=== PATIENT | male | born 1940 | race Caucasian/White ===

== ENCOUNTER 2019-11-20 11:31 | Observation (INO) | payer MEDICARE, OTHER ==
[2019-11-20 12:22] LABS: ABSOLUTE BASOPHILS # (AUTO) 0.1 10^3/uL (0.0-0.2); ABSOLUTE EOSINOPHILS # (AUTO) 0.1 10^3/uL (0.0-0.6); ABSOLUTE MONOCYTES (AUTO) 0.4 10^3/uL (0.1-1.4); ABSOLUTE NEUT (AUTO) 4.1 10^3/uL (1.7-8.2); BASOPHILS % (AUTO) 0.9 % (0-2); HEMATOCRIT 44.5 % (37.9-51.0); HEMOGLOBIN 15.3 g/dL (13.5-17.0); LYMPHOCYTES % (AUTO) 17.7 % (13-45); MEAN CORPUSCULAR HEMOGLOBIN 32.3 pg (27.0-33.4); MEAN CORPUSCULAR HGB CONC 34.3 g/dL (32.0-36.0); MEAN CORPUSCULAR VOLUME 94 fl (80-97); MONOCYTES % (AUTO) 6.6 % (3-13); PLATELET COUNT 115 10^3/uL (150-450); RED BLOOD COUNT 4.72 10^6/uL (4.35-5.55); RED CELL DISTRIBUTION WIDTH 14.3 % (11.5-14.0); SEGMENTED NEUTROPHILS % (AUTO) 72.8 % (42-78); TOTAL CELLS COUNTED % (AUTO) 100 %; WHITE BLOOD COUNT 5.6 10^3/uL (4.0-10.5)
[2019-11-20 12:44] LABS: ALBUMIN 4.5 g/dL (3.5-5.0); ALKALINE PHOSPHATASE 85 U/L (38-126); ANION GAP 9 (5-19); ASPARTATE AMINO TRANSFERASE 30 U/L (17-59); BILIRUBIN,DIRECT 0.3 mg/dL (0.0-0.4); BILIRUBIN,TOTAL 0.9 mg/dL (0.2-1.3); BLOOD UREA NITROGEN 14 mg/dL (7-20); CALCIUM 9.6 mg/dL (8.4-10.2); CARBON DIOXIDE 28 mmol/L (22-30); CHLORIDE 104 mmol/L (98-107); CREATINE KINASE 161 U/L (55-170); GLUCOSE 105 mg/dL (75-110); POTASSIUM 4.5 mmol/L (3.6-5.0); TOTAL PROTEIN 8.5 g/dL (6.3-8.2)
[2019-11-20 12:58] LABS: TROPONIN I < 0.012 ng/mL
[2019-11-20 13:04] LABS: APPEARANCE,URINE CLEAR; BILIRUBIN,URINE NEGATIVE (NEGATIVE); COLOR,URINE YELLOW; GLUCOSE, URINE NEGATIVE (NEGATIVE); KETONES,URINE NEGATIVE (NEGATIVE); LEUKOCYTE ESTERASE,URINE NEGATIVE (NEGATIVE); NITRITE,URINE NEGATIVE (NEGATIVE); PROTEIN,URINE NEGATIVE (NEGATIVE); UROBILINOGEN,URINE NEGATIVE mg/dL (<2.0)
--- NOTE | 2019-11-20 15:43 | RADIOLOGY REPORT (SQ) ---
EXAM DESCRIPTION: CHEST SINGLE VIEW COMPLETED DATE/TIME: 11/20/2019 3:17 pm REASON FOR STUDY: weak COMPARISON: None. EXAM PARAMETERS: NUMBER OF VIEWS: One view. TECHNIQUE: Single frontal radiographic view of the chest acquired. RADIATION DOSE: NA LIMITATIONS: None. FINDINGS: LUNGS AND PLEURA: No opacities, masses or pneumothorax. No pleural effusion. MEDIASTINUM AND HILAR STRUCTURES: No masses. Contour normal. HEART AND VASCULAR STRUCTURES: Heart normal in size. Normal vasculature. BONES: No acute findings. HARDWARE: None in the chest. OTHER: No other significant finding. IMPRESSION: NO ACUTE RADIOGRAPHIC FINDING IN THE CHEST. TECHNICAL DOCUMENTATION: JOB ID: [id number] [employer]- All Rights Reserved Reading location - IP/workstation name: [email or web address]
--- NOTE | 2019-11-20 16:12 | RADIOLOGY REPORT (SQ) ---
EXAM DESCRIPTION: CT HEAD WITHOUT COMPLETED DATE/TIME: 11/20/2019 3:55 pm REASON FOR STUDY: ataxia and slurred speech early today, hi BP COMPARISON: None. TECHNIQUE: Axial images acquired through the brain without intravenous contrast. Images reviewed wi th bone, brain and subdural windows. Additional sagittal and coronal reconstructions were generated. Images stored on PACS. All CT scanners at this facility use dose modulation, iterative reconstruction, and/or weight based d osing when appropriate to reduce radiation dose to as low as reasonably achievable (ALARA). [facility]: Dose Right [facility]: CareDose [facility]: Dose Right [facility]: Teradose 4D [facility]: jellyfish RADIATION DOSE: CT Rad equipment meets quality standard of care and radiation dose reduction techniq ues were employed. CTDIvol: 53.2 mGy. DLP: 1070 mGy-cm. mGy. LIMITATIONS: None. FINDINGS: VENTRICLES: Prominent. CEREBRUM: No masses. No hemorrhage. No midline shift. Areas of low density in the white matter mos t likely due to chronic micro-vascular ischemic change. No evidence for acute infarction. CEREBELLUM: No masses. No hemorrhage. No alteration of density. No evidence for acute infarction. EXTRAAXIAL SPACES: Mild age-related involutional change. No fluid collections. No masses. ORBITS AND GLOBE: No intra- or extraconal masses. Normal contour of globe without masses. CALVARIUM: No fracture. PARANASAL SINUSES: No fluid or mucosal thickening. SOFT TISSUES: No mass or hematoma. OTHER: No other significant finding. IMPRESSION: MILD CHRONIC CHANGES OF ATROPHY AND MICROVASCULAR ISCHEMIA. NO ACUTE PROCESS. EVIDENCE OF ACUTE STROKE: NO. TECHNICAL DOCUMENTATION: JOB ID: [id number] Quality ID # 436: Final reports with documentation of one or more dose reduction techniques (e.g., Au tomated exposure control, adjustment of the mA and/or kV according to patient size, use of iterative reconstruction technique) 2010 [employer]- All Rights Reserved Reading location - IP/workstation name: [email or web address]
--- NOTE | 2019-11-20 17:44 | RADIOLOGY REPORT (SQ) ---
EXAM DESCRIPTION: CTA NECK; CTA HEAD COMPLETED DATE/TIME: 11/20/2019 4:16 pm REASON FOR STUDY: ataxia slurred speech transiently COMPARISON: None. TECHNIQUE: Axial dynamic scanning technique with dynamic contrast enhancement through the extra-aircraft pneudraulics repairer nial carotid and vertebral arteries in the neck and intracranial vessels. Multiplanar reconstructio n. 3-D MIPS and Volume-rendered images acquired at the workstation and saved to PACS. Images are r eviewed in soft tissue, bone, lung windows. All CT scanners at this facility use dose modulation, iterative reconstruction, and/or weight based d osing when appropriate to reduce radiation dose to as low as reasonably achievable (ALARA). [facility]: Dose Right [facility]: CareDose [facility]: Dose Right [facility]: Teradose 4D [facility]: Tetra Discovery CONTRAST TYPE AND DOSE: contrast/concentration: Isovue 350.00 mg/ml; Total Contrast Delivered: 70.0 ml; Total Saline Delivered: 75.0 ml RENAL FUNCTION: GFR > 60. LIMITATIONS: None. FINDINGS: CTA HEAD: [place]: Intracranial segments of the right internal carotid artery are widely patent. Int racranial segments of the left internal carotid artery are widely patent. There is minimal atheroscl erotic calcification at the cavernous sinus bilaterally. Bilateral A1 and M1 segments are patent. B ilateral anterior and middle cerebral arteries are patent. There is no aneurysm, dissection, or occl usion of the anterior circulation. No posterior communicating arteries are visualized. POSTERIOR CIRCULATION: The right vertebral artery is dominant. Both vertebral arteries are patent. The basilar artery is widely patent. Bilateral P1 segments are patent. Bilateral posterior cerebra l arteries are patent. No aneurysm, stenosis, or branch occlusion in the posterior circulation. BRAIN: No intracranial hemorrhage, hematoma, mass, or mass effect. No extra-axial fluid collection. Normal anne-white matter differentiation. No evidence of acute territorial infarct. Ventricles an d sulci have normal size and configuration. Posterior fossa is unremarkable. CTA NECK: AORTIC ARCH: Normal three-vessel origin. Bilateral subclavian arteries are patent. No dissection. RIGHT CAROTIDS: Patent common, internal and external carotid arteries without suggestion of significa nt stenosis or irregular plaque. No dissection. RIGHT VERTEBRAL: Patent. No dissection. LEFT CAROTIDS: Patent common, internal and external carotid arteries without suggestion of significan t stenosis or irregular plaque. No dissection. LEFT VERTEBRAL: Patent. No dissection. OTHER: No other significant finding. OTHER: 3-D reconstructions confirm findings. IMPRESSION: 1. No acute intracranial hemorrhage, mass, or evidence of acute territorial infarct. 2. No intracranial aneurysm, stenosis or branch occlusion. 3. No hemodynamically significant stenosis of the internal carotid arteries by NASCET criteria. COMMENT: Quality ID #[id number]: Measurements of distal internal carotid diameter were used as the denomina tor for stenosis measurement. TECHNICAL DOCUMENTATION: JOB ID: [id number] Quality ID # 436: Final reports with documentation of one or more dose reduction techniques (e.g., Au tomated exposure control, adjustment of the mA and/or kV according to patient size, use of iterative reconstruction technique) 2010 [employer]- All Rights Reserved Reading location - IP/workstation name: [email or web address]
--- NOTE | 2019-11-20 17:44 | RADIOLOGY REPORT (SQ) ---
EXAM DESCRIPTION: CTA NECK; CTA HEAD COMPLETED DATE/TIME: 11/20/2019 4:16 pm REASON FOR STUDY: ataxia slurred speech transiently COMPARISON: None. TECHNIQUE: Axial dynamic scanning technique with dynamic contrast enhancement through the extra-aircraft accessories mechanic nial carotid and vertebral arteries in the neck and intracranial vessels. Multiplanar reconstructio n. 3-D MIPS and Volume-rendered images acquired at the workstation and saved to PACS. Images are r eviewed in soft tissue, bone, lung windows. All CT scanners at this facility use dose modulation, iterative reconstruction, and/or weight based d osing when appropriate to reduce radiation dose to as low as reasonably achievable (ALARA). [facility]: Dose Right [facility]: CareDose [facility]: Dose Right [facility]: Teradose 4D [facility]: [employer]icon CONTRAST TYPE AND DOSE: contrast/concentration: Isovue 350.00 mg/ml; Total Contrast Delivered: 70.0 ml; Total Saline Delivered: 75.0 ml RENAL FUNCTION: GFR > 60. LIMITATIONS: None. FINDINGS: CTA HEAD: [place]: Intracranial segments of the right internal carotid artery are widely patent. Int racranial segments of the left internal carotid artery are widely patent. There is minimal atheroscl erotic calcification at the cavernous sinus bilaterally. Bilateral A1 and M1 segments are patent. B ilateral anterior and middle cerebral arteries are patent. There is no aneurysm, dissection, or occl usion of the anterior circulation. No posterior communicating arteries are visualized. POSTERIOR CIRCULATION: The right vertebral artery is dominant. Both vertebral arteries are patent. The basilar artery is widely patent. Bilateral P1 segments are patent. Bilateral posterior cerebra l arteries are patent. No aneurysm, stenosis, or branch occlusion in the posterior circulation. BRAIN: No intracranial hemorrhage, hematoma, mass, or mass effect. No extra-axial fluid collection. Normal anne-white matter differentiation. No evidence of acute territorial infarct. Ventricles an d sulci have normal size and configuration. Posterior fossa is unremarkable. CTA NECK: AORTIC ARCH: Normal three-vessel origin. Bilateral subclavian arteries are patent. No dissection. RIGHT CAROTIDS: Patent common, internal and external carotid arteries without suggestion of significa nt stenosis or irregular plaque. No dissection. RIGHT VERTEBRAL: Patent. No dissection. LEFT CAROTIDS: Patent common, internal and external carotid arteries without suggestion of significan t stenosis or irregular plaque. No dissection. LEFT VERTEBRAL: Patent. No dissection. OTHER: No other significant finding. OTHER: 3-D reconstructions confirm findings. IMPRESSION: 1. No acute intracranial hemorrhage, mass, or evidence of acute territorial infarct. 2. No intracranial aneurysm, stenosis or branch occlusion. 3. No hemodynamically significant stenosis of the internal carotid arteries by NASCET criteria. COMMENT: Quality ID #195: Measurements of distal internal carotid diameter were used as the denomina tor for stenosis measurement. TECHNICAL DOCUMENTATION: JOB ID: [id number] Quality ID # 436: Final reports with documentation of one or more dose reduction techniques (e.g., Au tomated exposure control, adjustment of the mA and/or kV according to patient size, use of iterative reconstruction technique) 2010 [employer]- All Rights Reserved Reading location - IP/workstation name: [id number]
--- NOTE | 2019-11-20 18:09 | ER Document Report ---
ED General - General Chief Complaint: Weakness Stated Complaint: HIGH BLOOD PRESSURE - HPI Notes: 79M presents w/ his brother and sister (who are in 60s) after he and they confirm a period early today of profound weakness imbalance, confusion. He is able to recall details of entire morning for history and sister who spoke w/ alicja on phone at one point during events corroborates he was confused responding slowly. pt says at baseline he walks easily, has no h/o falls until ~ 4 AM today. had been sleeping on couch couldn't lift up or keep trunk upright, felt whole body extremely weak. took great effort to roll himself off couch. when he stood up felt extremely off balance & ultimately got on the [place] it was dark and seem like he was falling into the [place] needing to hold onto something no side preference. he got to the bathroom, urinated then when leaving bathroom fell w/o he losing consciousness. denies cp, sob, DOWNEY/vision change. has h/o RA which has been under control on MTX and q 2wk Humira shots, most recent 1 w/a. remains on same doses tamsulosin, finasteride for long time & reports those are his only meds. he ultimately had to crawl on the floor to get back to couch. His sister says she knows it was 9:30 AM when she called and found he was slurring his speech. therefore she and her other brother went over and found him extremely weak unable to stand on his own. deny obvious focal deficits, or seizure type activity. sister called EMS. en route EMS reported his BP high 220s over 120s but nonfocal stroke screens. Glu WNL. Other PMH: PE 19 y/a for which he was admitted 1 wk and didn;t remain on AC meds. unsure if it was provoked/unprovoked. 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 finasteride 5mg. methotrexate 2.5mg. tamsulosin 0.4mg Past Medical History - General Information source: Patient, [facility] Records - Social History Smoking Status: Former Smoker Frequency of alcohol use: None Lives with: Alone - w/in last year, >6 m/a which was very hard for him. Family History: Reviewed & Not Pertinent Patient has suicidal ideation: No Patient has homicidal ideation: No - Past Medical History Cardiac Medical History: Reports: Hx Hypertension - CARDURA Denies: Hx Heart Attack Pulmonary Medical History: Denies: Hx Asthma Neurological Medical History: Denies: Hx Cerebrovascular Accident, Hx Seizures GI Medical History: Denies: Hx Hepatitis, Hx Hiatal Hernia, Hx Ulcer Infectious Medical History: Denies: Hx Hepatitis Past Surgical History: Denies: Hx Open Heart Surgery, Hx Pacemaker Review of Systems - Review of Systems Constitutional: Malaise, Weakness. denies: Chills, Diaphoresis, Fever, Weight gain, Weight loss, Recent illness EENT: denies: Eye pain, Blurred vision, Double vision, Throat pain, Difficulty swallowing, Throat swelling, Mouth pain, Vertigo Cardiovascular: Dizziness, Lightheaded. denies: Chest pain, Palpitations, Heart racing, Orthopnea, Dyspnea, Syncope, Paroxysmal Nocturnal Dysp Respiratory: denies: Cough, Hurts to breathe, Short of breath Gastrointestinal: denies: Abdomen distended, Abdominal pain, Diarrhea, Nausea, Vomiting, Constipation, Rectal bleeding Male Genitourinary: denies: Testicular pain, Penile discharge Musculoskeletal: denies: Back pain, Joint pain, Muscle stiffness, Leg swelling, Ankle swelling Skin: No symptoms reported Hematologic/Lymphatic: No symptoms reported Neurological/Psychological: Gait changes, Loss of power, Speech impairment. denies: Confusion, Hallucinations, Homicidal ideation, Seizure, Lost consciousness, Headaches, Numbness, Suicidal ideation, Tingling, Tremor Physical Exam - Vital signs Vitals: Temp Resp 97.7 F 15 11/20/19 11:52 11/20/19 11:52 - Neurological Cognition: Other - Is slightly hard of hearing but answers all questions appropriately dressed take some time to initiate and expressed full sentences Orientation: AAOx4 [place] Coma Scale Eye Opening: Spontaneous [place] Coma Scale Verbal: Oriented [place] Coma Scale Motor: Obeys Commands Donovan Coma Scale Total: 15 Speech: No: Dysarthria, Expressive aphasia, Receptive aphasia Cranial nerves: Normal. No: Facial palsy, Sensory deficit, Tongue deviation Cerebellar coordination: Truncal ataxia - Negative Romberg, discriminate sharp and dull all aspects of distal extremities of the legs. Does have some trouble while standing not sitting with standing upright, no difficulty bearing weight b ut starts to sway over when trying to turn. [id number] is intact and has good coordination bilaterally. [id number] is symmetric very minimal dyscalculia but no lateralizing or obvious ataxia. Course - Re-evaluation Re-evalutation: 11/24/19 14:22 his BP went down w/o any pharmacologic interventions in ED. over course of ED obs nih remained 0, but he did initially have evidence of truncal ataxia on ambulation. therefore will adm c/f CVA. (had here in ED neg ct and his slower speech (no dysarthia) has cleared), so do not belive he has a large vessel occlusion. might obtain mri on floor, and ensure BP overall is controllled. no evidence of hypoxia or dysnpea or DVT, and his history did not suggest PE in any way e.g. no dyspnea in any component no passing out, no recent immobility. i reveiewed his ecg and cxr per below. - Vital Signs Vital signs: Temp Pulse Resp BP Pulse Ox 97.3 F 58 L 18 171/71 H 99 11/22/19 11:42 11/22/19 11:42 11/22/19 11:42 11/22/19 11:42 11/22/19 11:42 - Laboratory Result Diagrams: 11/21/19 04:43 11/21/19 04:43 Laboratory results interpreted by me: 11/20/19 11/20/19 11/20/19 12:11 12:11 12:30 RDW 14.3 H Plt Count 115 L Creatinine 1.31 H Est GFR (MDRD) Non-Af 53 L Total Protein 8.5 H Urine Blood SMALL H - Diagnostic Test Radiology reviewed: Image reviewed, Reports reviewed - EKG Interpretation by [facility] EKG shows normal: Sinus rhythm - nsr rate 83. no st elev dep no ectopy. axis wnl. no evidence hypertrophy. all other intervals wnl. Discharge - Discharge Clinical Impression: Multiple falls, Acute kidney injury, Unstable balance Hypertension Qualifiers: Hypertension type: unspecified Qualified Code(s): I10 - Essential (primary) hypertension Condition: Stable Disposition: ADMITTED INPATIENT Unit Admitted: Telemetry - Does have a
--- NOTE | 2019-11-20 18:11 | RADIOLOGY REPORT (SQ) ---
EXAM DESCRIPTION: CHEST SINGLE VIEW COMPLETED DATE/TIME: 11/20/2019 5:30 pm REASON FOR STUDY: want lateral view COMPARISON: [facility] chest x-ray 06/30/2020 EXAM PARAMETERS: NUMBER OF VIEWS: One view. TECHNIQUE: Lateral radiographic views of the chest acquired. RADIATION DOSE: NA LIMITATIONS: None. FINDINGS: LUNGS AND PLEURA: No opacities, masses or pneumothorax. No pleural effusion. MEDIASTINUM AND HILAR STRUCTURES: No masses. Contour normal. HEART AND VASCULAR STRUCTURES: Heart normal in size. Normal vasculature. BONES: No acute findings. HARDWARE: None in the chest. OTHER: No other significant finding. IMPRESSION: NO ACUTE RADIOGRAPHIC FINDING IN THE CHEST. TECHNICAL DOCUMENTATION: JOB ID: [id number] [employer]- All Rights Reserved Reading location - IP/workstation name: [email or web address]
[2019-11-20] MEDS ORDERED: NORMAL SALINE 500 ML IV PRN (18:49)
[2019-11-20] MEDS ORDERED: ONDANSETRON HCL INJ/PF 4 MG/2 ML SDV IV PRN (18:57)
[2019-11-20] MEDS ORDERED: MAG HYDROX/AL HYDROX/SIMETH SUSP 30 ML UDCUP PO PRN (18:57)
[2019-11-20] MEDS ORDERED: ONDANSETRON 4 MG TAB.RAPDIS PO PRN (18:57)
[2019-11-20] MEDS: NORMAL SALINE 500 ML IV ONE ×2 (18:59→19:02)
[2019-11-20] MEDS ORDERED: HYDRALAZINE HCL INJ/PF 20 MG/1 ML SDV IV PRN ×2 (19:04→19:15)
--- NOTE | 2019-11-20 19:15 | PDOC H&P ---
History of Present Illness Admission Date/PCP: HERMINIO FRY MD History of Present Illness: MIRYAM JACOB is a 79 year old male who resents to the emergency room tonight with history of ataxia. Patient states that he felt like he could not walk straight and that he was walking into the [place] any headache he denies any nausea or vomiting. Never had these symptoms before.. States he had no focal weakness or no lateralizing signs.. In the room states that his speech might of been a little slurred at the time.. Patient states he feels significantly better now it is interesting to note that now his blood pressure is back down to normal at least in the normal range, approximately 137/80 View of his pressures earlier today in the emergency room show that they have been as high as 199/96 and actually consistently have been greatly elevated. States he is never been told he was hypertensive in the past and denies taking any medicine for high blood pressure. She does have rheumatoid arthritis and benign prostatic hypertrophy but otherwise states he is healthy. Denies any alcohol or smoking.. He is never had a heart attack or stroke.. Wishes to be a DNR.. Will be admitted to the hospital observation status overnight to be observed his blood pressures will be checked every 2 hours parameters will be given to give hydralazine for elevated blood pressures. MRI of the brain will be performed tomorrow. Studies tonight including CT head scan CTA of the head and CT of the neck are all unrevealing and nondiagnostic except for chronic changes Patient is medically stable to go to the floor. Explained all this to the patient his stepdaughter and his stepson who are in the room.. Did tell them that this potentially could be a life-threatening illness that the patient could have intracranial hemorrhage and or significant further logic event Past Medical History Cardiac Medical History: Reports: Hypertension - CARDURA Denies: Myocardial Infarction Pulmonary Medical History: Denies: Asthma Neurological Medical History: Denies: Seizures GI Medical History: Denies: Hepatitis, Hiatal Hernia Hematology: Denies: Anemia, Sickle Cell Disease Past Surgical History Past Surgical History: Denies: Pacemaker Social History Lives with: Alone Smoking Status: Former Smoker - Advance Directive Resuscitation Status: Do Not Resuscitate Family History Family History: Reviewed & Not Pertinent Parental Family History Reviewed: No Children Family History Reviewed: No Sibling(s) Family History Reviewed.: No Medication/Allergy Allergies/Adverse Reactions: No Known Allergies Allergy (Unverified 03/12/13 11:07) Review of Systems Constitutional: ABSENT: chills, fever(s), headache(s), weight gain, weight loss Eyes: ABSENT: visual disturbances Ears: ABSENT: hearing changes Cardiovascular: ABSENT: chest pain, dyspnea on exertion, edema, orthropnea, palpitations Respiratory: ABSENT: cough, hemoptysis Gastrointestinal: ABSENT: abdominal pain, constipation, diarrhea, hematemesis, hematochezia, nausea, vomiting Genitourinary: ABSENT: dysuria, hematuria Musculoskeletal: ABSENT: joint swelling Integumentary: ABSENT: rash, wounds Neurological: ABSENT: abnormal gait, abnormal speech, confusion, dizziness, focal weakness, syncope Psychiatric: ABSENT: anxiety, depression, homidical ideation, suicidal ideation Endocrine: ABSENT: cold intolerance, heat intolerance, polydipsia, polyuria Hematologic/Lymphatic: ABSENT: easy bleeding, easy bruising Physical Exam Vital Signs: Temp Pulse Resp BP Pulse Ox 98.7 F 76 16 197/93 H 100 11/20/19 17:19 11/20/19 11:53 11/20/19 18:31 11/20/19 18:01 11/20/19 18:31 Intake & Output 11/19/19 11/20/19 11/21/19 06:59 06:59 06:59 Weight 76.204 kg General appearance: PRESENT: no acute distress, well-developed, well-nourished Head exam: PRESENT: atraumatic, normocephalic Eye exam: PRESENT: conjunctiva pink, EOMI, PERRLA. ABSENT: scleral icterus Ear exam: PRESENT: normal external ear exam Mouth exam: PRESENT: moist, tongue midline Neck exam: ABSENT: carotid bruit, JVD, lymphadenopathy, thyromegaly Respiratory exam: PRESENT: clear to auscultation santa. ABSENT: rales, rhonchi, wheezes Cardiovascular exam: PRESENT: RRR. ABSENT: diastolic murmur, rubs, systolic murmur Pulses: PRESENT: normal dorsalis pedis pul Vascular exam: PRESENT: normal capillary refill GI/Abdominal exam: PRESENT: normal bowel sounds, soft. ABSENT: distended, guarding, mass, organolmegaly, rebound, tenderness Rectal exam: PRESENT: deferred Extremities exam: PRESENT: full ROM. ABSENT: calf tenderness, clubbing, pedal edema Neurological exam: PRESENT: alert, awake, oriented to person, oriented to place, oriented to time, oriented to situation, CN II-XII grossly intact. ABSENT: motor sensory deficit Psychiatric exam: PRESENT: appropriate affect, normal mood. ABSENT: homicidal ideation, suicidal ideation Skin exam: PRESENT: dry, intact, warm. ABSENT: cyanosis, rash Results Laboratory Results: 11/20/19 12:11 11/20/19 12:11 11/20/19 11/20/19 11/20/19 12:11 12:11 12:11 WBC 5.6 RBC 4.72 Hgb 15.3 Hct 44.5 MCV 94 MCH 32.3 MCHC 34.3 RDW 14.3 H Plt Count 115 L Seg Neutrophils % 72.8 Sodium 141.3 Potassium 4.5 Chloride 104 Carbon Dioxide 28 Anion Gap 9 BUN 14 Creatinine 1.31 H Est GFR ( Amer) > 60 Glucose 105 Calcium 9.6 Magnesium 2.3 Total Bilirubin 0.9 AST 30 Alkaline Phosphatase 85 Total Protein 8.5 H Albumin 4.5 Urine Color Urine Appearance Urine pH Ur Specific [place] Urine Protein Urine Glucose (UA) Urine Ketones Urine Blood Urine Nitrite Ur Leukocyte Esterase Urine WBC (Auto) Urine RBC (Auto) 11/20/19 12:30 WBC RBC Hgb Hct MCV MCH MCHC RDW Plt Count Seg Neutrophils % Sodium Potassium Chloride Carbon Dioxide Anion Gap BUN Creatinine Est GFR ( Amer) Glucose Calcium Magnesium Total Bilirubin AST Alkaline Phosphatase Total Protein Albumin Urine Color YELLOW Urine Appearance CLEAR Urine pH 7.0 Ur Specific [place] 1.010 Urine Protein NEGATIVE Urine Glucose (UA) NEGATIVE Urine Ketones NEGATIVE Urine Blood SMALL H Urine Nitrite NEGATIVE Ur Leukocyte Esterase NEGATIVE Urine WBC (Auto) 0 Urine RBC (Auto) 5 11/20/19 11/20/19 11/20/19 12:11 12:11 12:11 Creatine Kinase 161 CK-MB (CK-2) 1.40 Troponin I < 0.012 NT-Pro-B Natriuret Pep 159 Impressions: Head CT 11/20/19 15:01 IMPRESSION: MILD CHRONIC CHANGES OF ATROPHY AND MICROVASCULAR ISCHEMIA. NO ACUTE PROCESS. EVIDENCE OF ACUTE STROKE: NO. Chest X-Ray 11/20/19 16:14 IMPRESSION: NO ACUTE RADIOGRAPHIC FINDING IN THE CHEST. Neck CTA 11/20/19 16:15 IMPRESSION: 1. No acute intracranial hemorrhage, mass, or evidence of acute territorial infarct. 2. No intracranial aneurysm, stenosis or branch occlusion. 3. No hemodynamically significant stenosis of the internal carotid arteries by NASCET criteria. Head CTA 11/20/19 16:16 IMPRESSION: 1. No acute intracranial hemorrhage, mass, or evidence of acute territorial infarct. 2. No intracranial aneurysm, stenosis or branch occlusion. 3. No hemodynamically significant stenosis of the internal carotid arteries by NASCET criteria. Assessment and Plan - Diagnosis (1) Ataxia Is this a current diagnosis for this admission?: Yes (2) Rheumatoid arthritis Is this a current diagnosis for this admission?: Yes (3) BPH (benign prostatic hyperplasia) Is this a current diagnosis for this admission?: Yes (4) Acute kidney injury Is this a current diagnosis for this admission?: Yes (5) Hypertension Qualifiers: Hypertension type: unspecified Qualified Code(s): I10 - Essential (primary) hypertension Is this a current diagnosis for this admission?: Yes (7) Unstable balance Is this a current diagnosis for this admission?: Yes - Plan Summary Summary: Patient will be admitted to the hospital tonight observation status. Signs every 2 hours neuro checks every 4 hours, sling ordered as needed for systolic greater than 160 or diastolic greater than 90. RI of the brain tomorrow. No anticoagulants are started tonight. - Time Time Spent with patient: 35 or more minutes
--- NOTE | 2019-11-20 20:54 | RADIOLOGY REPORT (SQ) ---
EXAM DESCRIPTION: Left tibia/fibula RadLex: XR TIBIA FIBULA 2 VIEWS Views: 2 CLINICAL HISTORY: 79 years Male, POSS SHRAPNEL, MRI CLEARANCE COMPARISON: None. FINDINGS: Negative for acute fracture, dislocation, or radiopaque foreign body. IMPRESSION: 1. No acute findings. 2. No metallic foreign bodies.
--- NOTE | 2019-11-20 21:02 | RADIOLOGY REPORT (SQ) ---
EXAM DESCRIPTION: XR HAND 2 VIEWS BILATERAL COMPLETED DATE/TME: 11/20/2019 00:00 CLINICAL HISTORY: 79 years, Male, POSS SHRAPNEL, MRI CLEARANCE COMPARISON: None. NUMBER OF VIEWS: Four views were obtained TECHNIQUE: Frontal and lateral radiographs of both hands were acquired LIMITATIONS: None. FINDINGS: Left hand: Severe multifocal degenerative changes are noted throughout the wrist and hand, particularly about the triscaphe joint, first CMC joint, MCP, DIP, and PIP joints. No acute fracture or dislocation is identified. No definite retained radiopaque foreign bodies are evident. Right hand: Severe multifocal degenerative changes are noted throughout the hand and wrist, particularly about the first CMC joint, triscaphe joint, MCP joints, DIP joints, and PIP joints. No acute fracture or dislocation is evident. No retained radiopaque foreign bodies are noted. Well-corticated ossific density projects about the dorsum of the carpus, presumably related to a remote triquetral fracture. IMPRESSION: Overall, no definite retained radiopaque foreign body identified about either hand. Severe multifocal degenerative changes. copyright 2010 [employer]- All Rights Reserved
--- NOTE | 2019-11-20 21:51 | RADIOLOGY REPORT (SQ) ---
EXAM DESCRIPTION: RadLex: MR BRAIN WITHOUT IV CONTRAST CLINICAL HISTORY: 79 years Male; TIA TECHNIQUE: Routine noncontrast MRI brain protocol COMPARISON: CT 11/20/2019 FINDINGS: There is diffusion restriction in the posterior left putamen and along the posterior limb of the left internal capsule, 2.1 cm AP by less than 5 mm wide. There is mild vasogenic edema but no mass effect. No hemorrhage. No additional foci of diffusion restriction. Extensive focal and confluent areas of increased T2 signal in the cerebral white matter bilaterally are nonspecific, but typical for severe chronic small vessel disease. No hemosiderin deposition. Ventricles and cisterns are preserved. Both globes are aphakic. Calvarial marrow is normal. Paranasal sinuses and mastoid air cells are clear. Normal flow-voids are seen in the major intracranial arteries. IMPRESSION: 1. 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 Severe chronic ischemic white matter changes with diffuse cerebral atrophy
--- NOTE | 2019-11-20 21:56 | EKG REPORT ---
SEVERITY:- NORMAL ECG - SINUS RHYTHM : Confirmed by: Kamala Baez 20-Nov-2019 21:56:15
[2019-11-20] MEDS: FAMOTIDINE 20 MG TABLET PO SCH (23:02)
[2019-11-20] MEDS: NORMAL SALINE 1000 ML 1,000 ML IV PRN (23:02)
[2019-11-21 05:45] LABS: ABSOLUTE BASOPHILS # (AUTO) 0.1 10^3/uL (0.0-0.2); ABSOLUTE EOSINOPHILS # (AUTO) 0.2 10^3/uL (0.0-0.6); ABSOLUTE LYMPHOCYTES (AUTO) 1.8 10^3/uL (0.5-4.7); ABSOLUTE MONOCYTES (AUTO) 0.4 10^3/uL (0.1-1.4); ABSOLUTE NEUT (AUTO) 3.6 10^3/uL (1.7-8.2); BASOPHILS % (AUTO) 0.9 % (0-2); EOSINOPHILS % (AUTO) 3.2 % (0-6); LYMPHOCYTES % (AUTO) 29.8 % (13-45); MEAN CORPUSCULAR HEMOGLOBIN 31.9 pg (27.0-33.4); MEAN CORPUSCULAR HGB CONC 33.9 g/dL (32.0-36.0); MEAN CORPUSCULAR VOLUME 94 fl (80-97); MONOCYTES % (AUTO) 7.1 % (3-13); PLATELET COUNT 109 10^3/uL (150-450); RED BLOOD COUNT 4.14 10^6/uL (4.35-5.55); RED CELL DISTRIBUTION WIDTH 14.6 % (11.5-14.0); TOTAL CELLS COUNTED % (AUTO) 100 %; WHITE BLOOD COUNT 6.1 10^3/uL (4.0-10.5)
[2019-11-21 05:47] LABS: HEMOGLOBIN 13.2 g/dL (13.5-17.0)
[2019-11-21 05:55] LABS: ANION GAP 8 (5-19); BLOOD UREA NITROGEN 14 mg/dL (7-20); CALCIUM 8.6 mg/dL (8.4-10.2); CARBON DIOXIDE 25 mmol/L (22-30); CHLORIDE 108 mmol/L (98-107); GLUCOSE 92 mg/dL (75-110)
[2019-11-21] MEDS: NORMAL SALINE 1000 ML 1,000 ML IV PRN (06:11)
[2019-11-21] MEDS ORDERED: NORMAL SALINE 500 ML IV ONE (06:30)
[2019-11-21] MEDS: ACETAMINOPHEN 325 MG TABLET PO PRN (08:50)
[2019-11-21] MEDS: FAMOTIDINE 20 MG TABLET PO SCH ×2 (09:05→21:58)
[2019-11-21] MEDS: DOCUSATE SODIUM 100 MG CAPSULE PO SCH (09:05)
[2019-11-21] MEDS: ENOXAPARIN SODIUM INJ 40 MG/0.4 ML DISP.SYRIN SUBCUT SCH (09:05)
[2019-11-21] MEDS ORDERED: ENALAPRIL MALEATE 5 MG TABLET PO ONE (09:43)
--- NOTE | 2019-11-21 09:59 | PDOC PROGRESS REPORT ---
Subjective Progress Note for:: 11/21/19 Reason For Visit: ATAXIA,HYPERTENSION,GENERALIZED WEAKNESS,RHEUMATOI 11/21/2019 Admitted for ataxia and dysarthria. RI of the brain shows new left-sided ischemic infarct Physical Exam Vital Signs: Temp Pulse Resp BP Pulse Ox 97.8 F 69 16 173/59 H 99 11/21/19 07:03 11/21/19 07:03 11/21/19 07:03 11/21/19 07:03 11/21/19 07:03 Intake & Output 11/20/19 11/21/19 11/22/19 06:59 06:59 06:59 Intake Total 1394 Output Total 300 Balance 1094 Weight 74.9 kg General appearance: PRESENT: no acute distress Respiratory exam: PRESENT: clear to auscultation santa. ABSENT: rales, rhonchi, wheezes Cardiovascular exam: PRESENT: RRR. ABSENT: diastolic murmur, rubs, systolic murmur Neurological exam: PRESENT: alert, awake, oriented to person, oriented to place, oriented to time, oriented to situation, CN II-XII grossly intact, motor sensory deficit, other - Will consult physical therapy today to evaluate gait Patient denies any focal deficit Psychiatric exam: PRESENT: anxious Results Laboratory Results: 11/21/19 04:43 11/21/19 04:43 11/20/19 11/20/19 11/20/19 12:11 12:11 12:11 WBC 5.6 RBC 4.72 Hgb 15.3 Hct 44.5 MCV 94 MCH 32.3 MCHC 34.3 RDW 14.3 H Plt Count 115 L Seg Neutrophils % 72.8 Sodium 141.3 Potassium 4.5 Chloride 104 Carbon Dioxide 28 Anion Gap 9 BUN 14 Creatinine 1.31 H Est GFR ( Amer) > 60 Glucose 105 Calcium 9.6 Magnesium 2.3 Total Bilirubin 0.9 AST 30 Alkaline Phosphatase 85 Total Protein 8.5 H Albumin 4.5 TSH Urine Color Urine Appearance Urine pH Ur Specific [place] Urine Protein Urine Glucose (UA) Urine Ketones Urine Blood Urine Nitrite Ur Leukocyte Esterase Urine WBC (Auto) Urine RBC (Auto) 11/20/19 11/20/19 11/21/19 12:11 12:30 04:43 WBC 6.1 RBC 4.14 L Hgb 13.2 L D Hct 39.0 MCV 94 MCH 31.9 MCHC 33.9 RDW 14.6 H Plt Count 109 L Seg Neutrophils % 59.0 Sodium Potassium Chloride Carbon Dioxide Anion Gap BUN Creatinine Est GFR ( Amer) Glucose Calcium Magnesium Total Bilirubin AST Alkaline Phosphatase Total Protein Albumin TSH 2.21 Urine Color YELLOW Urine Appearance CLEAR Urine pH 7.0 Ur Specific [place] 1.010 Urine Protein NEGATIVE Urine Glucose (UA) NEGATIVE Urine Ketones NEGATIVE Urine Blood SMALL H Urine Nitrite NEGATIVE Ur Leukocyte Esterase NEGATIVE Urine WBC (Auto) 0 Urine RBC (Auto) 5 11/21/19 04:43 WBC RBC Hgb Hct MCV MCH MCHC RDW Plt Count Seg Neutrophils % Sodium 141.1 Potassium 4.0 Chloride 108 H Carbon Dioxide 25 Anion Gap 8 BUN 14 Creatinine 1.18 Est GFR ( Amer) > 60 Glucose 92 Calcium 8.6 Magnesium Total Bilirubin AST Alkaline Phosphatase Total Protein Albumin TSH Urine Color Urine Appearance Urine pH Ur Specific [place] Urine Protein Urine Glucose (UA) Urine Ketones Urine Blood Urine Nitrite Ur Leukocyte Esterase Urine WBC (Auto) Urine RBC (Auto) 11/20/19 11/20/19 11/20/19 12:11 12:11 12:11 Creatine Kinase 161 CK-MB (CK-2) 1.40 Troponin I < 0.012 NT-Pro-B Natriuret Pep 159 Impressions: Hand X-Ray 11/20/19 00:00 IMPRESSION: Overall, no definite retained radiopaque foreign body identified about either hand. Severe multifocal degenerative changes. copyright 2010 [employer]- All Rights Reserved Head MRI 11/20/19 00:00 IMPRESSION: 1. 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 Severe chronic ischemic white matter changes with diffuse cerebral atrophy Tibia/Fibula X-Ray 11/20/19 00:00 IMPRESSION: 1. No acute findings. 2. No metallic foreign bodies. Head CT 11/20/19 15:01 IMPRESSION: MILD CHRONIC CHANGES OF ATROPHY AND MICROVASCULAR ISCHEMIA. NO ACUTE PROCESS. EVIDENCE OF ACUTE STROKE: NO. Chest X-Ray 11/20/19 16:14 IMPRESSION: NO ACUTE RADIOGRAPHIC FINDING IN THE CHEST. Neck CTA 11/20/19 16:15 IMPRESSION: 1. No acute intracranial hemorrhage, mass, or evidence of acute territorial infarct. 2. No intracranial aneurysm, stenosis or branch occlusion. 3. No hemodynamically significant stenosis of the internal carotid arteries by NASCET criteria. Head CTA 11/20/19 16:16 IMPRESSION: 1. No acute intracranial hemorrhage, mass, or evidence of acute territorial infarct. 2. No intracranial aneurysm, stenosis or branch occlusion. 3. No hemodynamically significant stenosis of the internal carotid arteries by NASCET criteria. Assessment and Plan - Diagnosis (1) Ataxia Is this a current diagnosis for this admission?: Yes (2) Rheumatoid arthritis Is this a current diagnosis for this admission?: Yes (3) BPH (benign prostatic hyperplasia) Is this a current diagnosis for this admission?: Yes (4) Acute kidney injury Is this a current diagnosis for this admission?: Yes (5) Hypertension Qualifiers: Hypertension type: unspecified Qualified Code(s): I10 - Essential (primary) hypertension Is this a current diagnosis for this admission?: Yes (7) Unstable balance Is this a current diagnosis for this admission?: Yes - Plan Summary Summary: Patient will be admitted to the hospital tonight observation status. Signs every 2 hours neuro checks every 4 hours, sling ordered as needed for systolic greater than 160 or diastolic greater than 90. MRI of the brain tomorrow. No anticoagulants are started tonight. 11/21/2019 Since blood pressure has been up through most of the night however not near as high as it was in the emergency room BUN and creatinine have improved slightly other labs are normal MRI scan of the brain shows new acute infarct in the left internal capsule Today I started patient on baby aspirin and Plavix daily as well as Norvasc 5 mg daily Resume patient home meds today Consult physical therapy to evaluate his gait, to regulate his blood pressure From a hypertension standpoint patient is not ready to be discharged I discussed with the patient's nurse the plan of action for today - Time Time Spent with patient: 25-34 minutes
[2019-11-21] MEDS ORDERED: D3 PO SCH (10:00)
[2019-11-21] MEDS ORDERED: BOSWELLIA SERRA PO SCH (10:00)
[2019-11-21] MEDS ORDERED: GLUCOSAMINE PO SCH (10:00)
[2019-11-21] MEDS: FOLIC ACID 1 MG TABLET PO SCH (10:02)
[2019-11-21] MEDS: TAMSULOSIN HCL 0.4 MG CAP.SR.24H PO SCH (10:02)
[2019-11-21] MEDS: ASPIRIN 81 MG TABLET, ENT COATED PO SCH (10:02)
[2019-11-21] MEDS: FINASTERIDE 5 MG TABLET PO SCH (10:02)
[2019-11-21] MEDS: CLOPIDOGREL BISULFATE 75 MG TABLET PO SCH (10:02)
[2019-11-21] MEDS: ENALAPRIL MALEATE 5 MG TABLET PO SCH (11:00)
[2019-11-21] MEDS ORDERED: ATORVASTATIN CALCIUM 20 MG TABLET PO SCH (22:00)
[2019-11-22] MEDS: ACETAMINOPHEN 325 MG TABLET PO PRN (08:38)
[2019-11-22] MEDS: ENALAPRIL MALEATE 5 MG TABLET PO SCH (09:23)
[2019-11-22] MEDS: FAMOTIDINE 20 MG TABLET PO SCH (09:24)
[2019-11-22] MEDS: CLOPIDOGREL BISULFATE 75 MG TABLET PO SCH (09:25)
[2019-11-22] MEDS: TAMSULOSIN HCL 0.4 MG CAP.SR.24H PO SCH (09:25)
[2019-11-22] MEDS: ASPIRIN 81 MG TABLET, ENT COATED PO SCH (09:25)
[2019-11-22] MEDS: FOLIC ACID 1 MG TABLET PO SCH (09:25)
[2019-11-22] MEDS: FINASTERIDE 5 MG TABLET PO SCH (09:26)
[2019-11-22] MEDS: DOCUSATE SODIUM 100 MG CAPSULE PO SCH (09:28)
[2019-11-22] MEDS: ENOXAPARIN SODIUM INJ 40 MG/0.4 ML DISP.SYRIN SUBCUT SCH (09:28)
[2019-11-22 11:49] VITALS: BP 171/71
[2019-11-24] MEDS ORDERED: METHOTREXATE SODIUM 2.5 MG TABLET PO SCH (10:00)
--- NOTE | 2019-11-24 18:19 | PDOC DISCHARGE SUMMARY ---
Impression - Admit/DC Date/PCP Admission Date/Primary Care Provider: 11/20/19 19:37 HERMINIO FRY MD Discharge Date: 11/22/19 - Discharge Diagnosis (1) Ataxia Is this a current diagnosis for this admission?: Yes (2) Rheumatoid arthritis Is this a current diagnosis for this admission?: Yes (3) BPH (benign prostatic hyperplasia) Is this a current diagnosis for this admission?: Yes (4) Acute kidney injury Is this a current diagnosis for this admission?: Yes (5) Hypertension Is this a current diagnosis for this admission?: Yes (6) Multiple falls Is this a current diagnosis for this admission?: Yes (7) Unstable balance Is this a current diagnosis for this admission?: Yes - Assessment Summary: Patient will be admitted to the hospital tonight observation status. Signs every 2 hours neuro checks every 4 hours, sling ordered as needed for systolic greater than 160 or diastolic greater than 90. MRI of the brain tomorrow. No anticoagulants are started tonight. 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 Patient also told to take one baby aspirin but daily. he is to follow-up with his primary care provider week for blood pressure control. he will check his blood pressures on a daily basis. At the time of discharge he was medically stable with no deficits Vital signs at discharge temperature 97.3 pulse 58 blood pressure 171/71, currently his blood pressure had been running much lower 124/64, 136/66 Patient's Vasotec was just increased at the time of discharge Patient is being discharged with a nonhemorrhagic infarct. This was demonstrated on an MRI of the head. CTA of the head was negative CTA of the neck was negative showing no stenosis chest x-ray showed no acute cardiopulmonary disease , CT head scan in the emergency room room was also negative. Patient is discharged home in good condition to follow-up with his primary care provider - Additional Information Resuscitation Status: Do Not Resuscitate Discharge Diet: Cardiac Discharge Activity: Balance Activity w/Rest, No Driving, No Lifting/Push/Pulling Referrals: HERMINIO FRY MD [Primary Care Provider] - Follow up as needed Prescriptions: Atorvastatin Calcium [Lipitor 20 mg Tablet] 20 mg PO QHS 30 Days #30 tablet Clopidogrel Bisulfate [Plavix 75 mg Tablet] 75 mg PO DAILY 30 Days #30 tablet Enalapril Maleate [Vasotec 5 mg Tablet] 10 mg PO DAILY 30 Days #30 tablet Home Medications: Adalimumab [Humira(Cf) Pen] 40 mg SQ [id number] 11/20/19 Finasteride [Proscar 5 mg Tablet] 5 mg PO DAILY 11/20/19 Folic Acid [Folvite 1 mg Tablet] 1 mg PO DAILY 11/20/19 Glucosamine/D3/Boswellia Yaquelin [Osteo Bi-Flex Tablet] 1 tab PO DAILY 11/20/19 Methotrexate Sodium [Rheumatrex 2.5 mg Tablet] 10 mg PO MO@1000 11/20/19 Multivitamin [One-A-Day Essential] 1 tab PO DAILY 11/20/19 Tamsulosin HCl [Flomax 0.4 mg Cap.sr] 0.4 mg PO DAILY 11/20/19 Acetaminophen [Tylenol 325 mg Tablet] 650 mg PO Q4HP PRN tablet 11/22/19 Aspirin [Ecotrin 81 mg EC Tablet] 81 mg PO DAILY tabec 11/22/19 Atorvastatin Calcium [Lipitor 20 mg Tablet] 20 mg PO QHS 30 Days #30 tablet 11/22/19 Clopidogrel Bisulfate [Plavix 75 mg Tablet] 75 mg PO DAILY 30 Days #30 tablet 11/22/19 Enalapril Maleate [Vasotec 5 mg Tablet] 10 mg PO DAILY 30 Days #30 tablet 11/22/19 History of Present Illiness History of Present Illness: MIRYAM JACOB is a 79 year old male who resents to the emergency room tonight with history of ataxia. Patient states that he felt like he could not walk straight and that he was walking into the [place] any headache he denies any nausea or vomiting. Never had these symptoms before.. States he had no focal weakness or no lateralizing signs.. In the room states that his speech might of been a little slurred at the time.. Patient states he feels significantly better now it is interesting to note that now his blood pressure is back down to normal at least in the normal range, approximately 137/80 View of his pressures earlier today in the emergency room show that they have been as high as 199/96 and actually consistently have been greatly elevated. [facility] he is never been told he was hypertensive in the past and denies taking any medicine for high blood pressure. She does have rheumatoid arthritis and benign prostatic hypertrophy but otherwise states he is healthy. Denies any alcohol or smoking.. He is never had a heart attack or stroke.. Wishes to be a DNR.. Will be admitted to the hospital observation status overnight to be observed his blood pressures will be checked every 2 hours parameters will be given to give hydralazine for elevated blood pressures. MRI of the brain will be performed tomorrow. Studies tonight including CT head scan CTA of the head and CT of the neck are all unrevealing and nondiagnostic except for chronic changes Patient is medically stable to go to the floor. Explained all this to the patient his stepdaughter and his stepson who are in the room.. Did tell them that this potentially could be a life-threatening illness that the patient could have intracranial hemorrhage and or significant further logic event Physical Exam Vital Signs: Temp Pulse Resp BP Pulse Ox 97.3 F 58 L 18 171/71 H 99 11/22/19 11:42 11/22/19 11:42 11/22/19 11:42 11/22/19 11:42 11/22/19 11:42 Results Laboratory Results: WBC 6.1 10^3/uL (4.0-10.5) 11/21/19 04:43 RBC 4.14 10^6/uL (4.35-5.55) L 11/21/19 04:43 Hgb 13.2 g/dL (13.5-17.0) L D 11/21/19 04:43 Hct 39.0 % (37.9-51.0) 11/21/19 04:43 MCV 94 fl (80-97) 11/21/19 04:43 MCH 31.9 pg (27.0-33.4) 11/21/19 04:43 MCHC 33.9 g/dL (32.0-36.0) 11/21/19 04:43 RDW 14.6 % (11.5-14.0) H 11/21/19 04:43 Plt Count 109 10^3/uL (150-450) L 11/21/19 04:43 Lymph % (Auto) 29.8 % (13-45) 11/21/19 04:43 [place] % (Auto) 7.1 % (3-13) 11/21/19 04:43 Eos % (Auto) 3.2 % (0-6) 11/21/19 04:43 Baso % (Auto) 0.9 % (0-2) 11/21/19 04:43 Absolute Neuts (auto) 3.6 10^3/uL (1.7-8.2) 11/21/19 04:43 Absolute Lymphs (auto) 1.8 10^3/uL (0.5-4.7) 11/21/19 04:43 Absolute Monos (auto) 0.4 10^3/uL (0.1-1.4) 11/21/19 04:43 Absolute Eos (auto) 0.2 10^3/uL (0.0-0.6) 11/21/19 04:43 Absolute Basos (auto) 0.1 10^3/uL (0.0-0.2) 11/21/19 04:43 Seg Neutrophils % 59.0 % (42-78) 11/21/19 04:43 Sodium 141.1 mmol/L (137-145) 11/21/19 04:43 Potassium 4.0 mmol/L (3.6-5.0) 11/21/19 04:43 Chloride 108 mmol/L (98-107) H 11/21/19 04:43 Carbon Dioxide 25 mmol/L (22-30) 11/21/19 04:43 Anion Gap 8 (5-19) 11/21/19 04:43 BUN 14 mg/dL (7-20) 11/21/19 04:43 Creatinine 1.18 mg/dL (0.52-1.25) 11/21/19 04:43 Est GFR ( Amer) > 60 (>60) 11/21/19 04:43 Est GFR (MDRD) Non-Af 59 (>60) L 11/21/19 04:43 Glucose 92 mg/dL (75-110) 11/21/19 04:43 Calcium 8.6 mg/dL (8.4-10.2) 11/21/19 04:43 Magnesium 2.3 mg/dL (1.6-2.3) 11/20/19 12:11 Total Bilirubin 0.9 mg/dL (0.2-1.3) 11/20/19 12:11 Direct Bilirubin 0.3 mg/dL (0.0-0.4) 11/20/19 12:11 Neonat Total Bilirubin Not Reportable 11/20/19 12:11 Neonat Direct Bilirubin Not Reportable 11/20/19 12:11 Neonat Indirect Bili Not Reportable 11/20/19 12:11 AST 30 U/L (17-59) 11/20/19 12:11 ALT 15 U/L (<50) 11/20/19 12:11 Alkaline Phosphatase 85 U/L (38-126) 11/20/19 12:11 Creatine Kinase 161 U/L (55-170) 11/20/19 12:11 CK-MB (CK-2) 1.40 ng/mL (<4.55) 11/20/19 12:11 Troponin I < 0.012 ng/mL 11/20/19 12:11 NT-Pro-B Natriuret Pep 159 pg/mL (<450) 11/20/19 12:11 Total Protein 8.5 g/dL (6.3-8.2) H 11/20/19 12:11 Albumin 4.5 g/dL (3.5-5.0) 11/20/19 12:11 TSH 2.21 uIU/mL (0.47-4.68) 11/20/19 12:11 Urine Color YELLOW 11/20/19 12:30 Urine Appearance CLEAR 11/20/19 12:30 Urine pH 7.0 (5.0-9.0) 11/20/19 12:30 Ur Specific [place] 1.010 11/20/19 12:30 Urine Protein NEGATIVE mg/dL (NEGATIVE) 11/20/19 12:30 Urine Glucose (UA) NEGATIVE mg/dL (NEGATIVE) 11/20/19 12:30 Urine Ketones NEGATIVE mg/dL (NEGATIVE) 11/20/19 12:30 Urine Blood SMALL (NEGATIVE) H 11/20/19 12:30 Urine Nitrite NEGATIVE (NEGATIVE) 11/20/19 12:30 Urine Bilirubin NEGATIVE (NEGATIVE) 11/20/19 12:30 Urine Urobilinogen NEGATIVE mg/dL (<2.0) 11/20/19 12:30 Ur Leukocyte Esterase NEGATIVE (NEGATIVE) 11/20/19 12:30 Urine WBC (Auto) 0 /HPF 11/20/19 12:30 Urine RBC (Auto) 5 /HPF 11/20/19 12:30 Squamous Epi Cells Auto <1 /HPF 11/20/19 12:30 Urine Mucus (Auto) RARE /LPF 11/20/19 12:30 Urine Ascorbic Acid NEGATIVE (NEGATIVE) 11/20/19 12:30 11/20/19 11/20/19 12:11 12:11 CK-MB (CK-2) 1.40 Troponin I < 0.012 NT-Pro-B Natriuret Pep 159 Impressions: Hand X-Ray 11/20/19 00:00 IMPRESSION: Overall, no definite retained radiopaque foreign body identified about either hand. Severe multifocal degenerative changes. copyright 2010 [id number]- All Rights Reserved Head MRI 11/20/19 00:00 IMPRESSION: 1. 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 Severe chronic ischemic white matter changes with diffuse cerebral atrophy Tibia/Fibula X-Ray 11/20/19 00:00 IMPRESSION: 1. No acute findings. 2. No metallic foreign bodies. Head CT 11/20/19 15:01 IMPRESSION: MILD CHRONIC CHANGES OF ATROPHY AND MICROVASCULAR ISCHEMIA. NO ACUTE PROCESS. EVIDENCE OF ACUTE STROKE: NO. Chest X-Ray 11/20/19 15:04 IMPRESSION: NO ACUTE RADIOGRAPHIC FINDING IN THE CHEST. Chest X-Ray 11/20/19 16:14 IMPRESSION: NO ACUTE RADIOGRAPHIC FINDING IN THE CHEST. Neck CTA 11/20/19 16:15 IMPRESSION: 1. No acute intracranial hemorrhage, mass, or evidence of acute territorial i nfarct. 2. No intracranial aneurysm, stenosis or branch occlusion. 3. No hemodynamically significant stenosis of the internal carotid arteries by NASCET criteria. Head CTA 11/20/19 16:16 IMPRESSION: 1. No acute intracranial hemorrhage, mass, or evidence of acute territorial infarct. 2. No intracranial aneurysm, stenosis or branch occlusion. 3. No hemodynamically significant stenosis of the internal carotid arteries by NASCET criteria. Stroke Is this a Stroke Patient?: Yes Stroke Pt being discharged on Anti-thrombolytic therapy?: Yes Stroke Pt being discharged on Anti-coagulation therapy?: Yes Stroke Pt being discharged on Statins?: Yes Acute Heart Failure - Is this a Heart Failure Patient?: No
== END 2019-11-22 12:01 | disposition home health service (06) ==
LOC: ER 11:31 → EH 19:37 → 3W 22:54
PROVIDERS: ADMIT Internal Medicine; ATTEND Hospitalist
DX: R27.0 Ataxia, unspecified (principal); M06.9 Rheumatoid arthritis, unspecified; N40.0 Benign prostatic hyperplasia without lower urinary tract symptoms; N17.9 Acute kidney failure, unspecified; I10 Essential (primary) hypertension; R29.6 Repeated falls; R41.0 Disorientation, unspecified; R47.81 Slurred speech; Z66 Do not resuscitate; Z79.899 Other long term (current) drug therapy; Z60.2 Problems related to living alone; Z87.891 Personal history of nicotine dependence
CPT/HCPCS: 93005; 99284; 96360; 96361; 36415 ×2; 82553; 82550; 83735; 84443; 85025 ×2; 80048; 80053; 81001; 84484; 83880; 70551; 71045; 73590; 73120; 70450; 70496; 70498; 93010; 97116; 97162; G0378 ×4; A9270 ×19; J0360; J1650; J7030 ×2; J7040; J3490

== ENCOUNTER 2020-08-19 06:54 | Day surgery (SDC) | payer MEDICARE, OTHER ==
[2020-08-16 09:56] LABS: HEMATOCRIT 39.8 % (37.9-51.0); HEMOGLOBIN 13.7 g/dL (13.5-17.0); MEAN CORPUSCULAR HEMOGLOBIN 32.7 pg (27.0-33.4); MEAN CORPUSCULAR HGB CONC 34.4 g/dL (32.0-36.0); MEAN CORPUSCULAR VOLUME 95 fl (80-97); PLATELET COUNT 116 10^3/uL (150-450); RED CELL DISTRIBUTION WIDTH 14.2 % (11.5-14.0); WHITE BLOOD COUNT 5.2 10^3/uL (4.0-10.5)
--- NOTE | 2020-08-16 12:45 | EKG REPORT ---
SEVERITY:- OTHERWISE NORMAL ECG - SINUS RHYTHM ATRIAL PREMATURE COMPLEX : Confirmed by: Mari Mcginnis MD 16-Aug-2020 12:44:24
[~2020-08-19 06:54] MED LIST: ACETAMINOPHEN 325 MG TABLET PO PRN; LACTATED RINGERS 1000 ML IV PRN; LIDOCAINE 0.5% INJ-PF (5 MG/ML) 50 ML SDV SUBCUT PRN; PROPOFOL INJ 200 MG/20 ML VIAL IV ONE
--- NOTE | 2020-08-19 08:04 | Discharge Summary ---
Discharge Summary (SDC) - Discharge Final Diagnosis: Diverticulosis sigmoid colon Date of Surgery: 08/19/20 Discharge Date: 08/19/20 Condition: Good Treatment or Instructions: [facility] [place] [id number] POST ENDOSCOPY DISCHARGE INSTRUCTIONS 1. Diet: Start clear liquids that a regular diet as tolerated. 2. Resume all preoperative medications. All oral anticoagulants and aspirins can be resumed 24 hours after procedure. 3. If a polypectomy was performed some bleeding per rectum may occur. This should stop within 3 days. If not, please contact the office. 4. If you had a colonoscopy you may experience some bloating and delayed return of normal bowel function for several days, your regular bowel movement pattern should resume within a week. 5. Please contact [facility] at to make an appointment with Dr. Vickers for 1 to 3 weeks following procedure. 6. If you have any questions or concerns regarding your care,treatment plan or follow up, please contact our office. 7. Per clinical guidelines we recommend, based on age, you likely do not need surveillance colonoscopy Referrals: HERMINIO FRY MD [Primary Care Provider] - Discharge Diet: As Tolerated Discharge Activity: Activity As Tolerated Home Care Assistance: None Needed Report the Following to Your Physician Immediately: Shortness of Breath, Increase in Pain, Fever over 101 Degrees
--- NOTE | 2020-08-19 08:06 | Operative Report ---
Operative Report DATE OF SURGERY: 08/19/20 PREOPERATIVE DIAGNOSIS: Screening for colorectal carcinoma POSTOPERATIVE DIAGNOSIS: No evidence of colorectal carcinoma; sigmoid diverticulosis OPERATION: Total colonoscopy to cecum with photodocumentation SURGEON: JAREN CHACON ANESTHESIA: LMAC TISSUE REMOVED OR ALTERED: None COMPLICATIONS: None ESTIMATED BLOOD LOSS: None INTRAOPERATIVE FINDINGS: See below PROCEDURE: Obtaining informed consent the patient was taken from the preoperative holding area to the main endoscopy suite where monitoring devices were attached to the patient. Plan and surgical timeout were conducted The patient was placed in the left lateral decubitus position with knees to chest. A perianal examination was performed. There was no visible or palpable anorectal pathology. Sphincter tone was felt to be normal. Appropriate level of LMAC anesthesia was induced. The flexible adult colonoscope was advanced through the anal rectal canal, all the way to the cecum. Visualization of the cecum was achieved by demonstration of the ileocecal valve, the appendiceal orifice and transillumination of the anterior abdominal wall. This was an excellent study on the well-prepped bowel. The colonoscope was withdrawn slowly and methodically checked and the mucosa carefully. There was no evidence of tumor, stricture, bleeding or polyp. There were extensive diverticulosis of the sigmoid colon but no stricture. The scope was slowly withdrawn through the anal rectal canal. Complete visualization of the rectum was achieved with photodocumentation. The scope was withdrawn to the patient's anus. The patient tolerated the procedure well and was taken to the recovery area in stable condition. Per surveillance guidelines, he will not require a screening colonoscopy based on age.
[2020-08-19 08:31] VITALS: BP 148/65
== END 2020-08-19 08:30 | disposition home or self-care (01) ==
LOC: END 06:54
PROVIDERS: ATTEND Surgery
DX: Z12.11 Encounter for screening for malignant neoplasm of colon (principal); K57.30 Diverticulosis of large intestine without perforation or abscess without bleeding; I10 Essential (primary) hypertension; M06.9 Rheumatoid arthritis, unspecified; M19.90 Unspecified osteoarthritis, unspecified site; Z86.73 Personal history of transient ischemic attack (TIA), and cerebral infarction without residual deficits; Z79.899 Other long term (current) drug therapy; Z87.891 Personal history of nicotine dependence; Z03.818 Encounter for observation for suspected exposure to other biological agents ruled out; Z79.82 Long term (current) use of aspirin; Z79.02 Long term (current) use of antithrombotics/antiplatelets
CPT/HCPCS: 45378; 93005; 36415; 85027; 93010; 00812; U0003; J2704; C9803; 812; 87635